=== PATIENT | male | born 1975 | race Caucasian/White ===

== ENCOUNTER 2016-09-30 09:58 | Emergency (ER) | payer BC ==
--- NOTE | 2016-09-30 10:13 | EDM.PDOC ---
ED HPI GENERAL MEDICAL PROBLEM - General Chief Complaint: Gastrointestinal Problem Stated Complaint: VOMITTING Time Seen by Provider: 09/30/16 10:13 Source of Information: Reports: Patient History Limitations: Reports: No Limitations - History of Present Illness INITIAL COMMENTS - FREE TEXT/NARRATIVE: HISTORY AND PHYSICAL: []41-year-old with history of pancreatitis presenting with vomiting per day and a half and elevated sugars History of Present Illness: [] This gentleman relates pain hospitalized 3 with his pancreatitis and abdominal pain in the past he is from [place] and has been hospitalized there as well as in [place] His blood sugars yesterday were reported at over 500 Today his sugars are over 350 he called his physician in [place] and was instructed to report to the emergency department here Patient complains of pain across his abdomen 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 Past medical history: As per history of present illness and as reviewed below otherwise noncontributory. Surgical history: As per history of present illness and as reviewed below otherwise noncontributory. Social history: No reported history of drug or alcohol abuse. Family history: As per history of present illness and as reviewed below otherwise noncontributory. Physical exam: Alert and oriented gentleman who answers questions appropriately skin is warm and dry he is speaking in full sentences with no shortness of breath and denies any chest pain, afebrile HEENT: Atraumatic, normocehpalic, pupils reactive, negative for conjunctival pallor or scleral icterus, mucous membranes dry, throat clear, neck supple, nontender, trachea midline. Lungs: Clear to auscultation, breath sounds equal bilaterally, chest non tender. Heart: S1S2, regular, negative for clicks, rubs, or JVD. Abdomen: Soft, slightly rounded, tender throughout. No rebound no guarding Negative for masses or hepatossplenmegaly. Negative for costovertebral tenderness. Pelvis: Stable nontender. Genitourinary: Deferred. Rectal: Deferred Extremities: Atraumatic, negative for cords or calf pain. No peripheral edema. Pedal pulses are intact Neurovascular unremarkable. Neuro: Awake, alert, oriented. Cranial nerves II through XII unremarkable. Cerebellum unremarkable. Motor and sensory unremarkable throughout. Exam nonfocal. Have discussed this case at some length with Discussed with the patient that he on CT scan has a nodule to the lung that needs to be reevaluated in 1 year. Have discussed with patient the results of his lab work and x-rays CT scan. Patient is requesting pain medication as he continues to have pain as 09/23. Lactic acid has returned to normal range after 2-1/2 L of fluid. Diagnostics: [CBC CMP amylase lipase CT abdomen blood cultures 2] chest x-ray [employer]: [Normal saline X 3 Dilaudid IV Zofran IV] Impression: [#1 abdominal pain #2 hyperglycemia #3 pancreatitis] Plan: [Discharged to home Zofran prescription for nausea Hydrocodone/APAP for pain] Definitive disposition and diagnosis as appropriate pending reevaluation and review of above. Onset: Sudden Duration: Day(s): Location: Reports: Abdomen abdomen Pain Score (Numeric/FACES): 9 - Related Data Allergies Allergy/AdvReac Type Severity Reaction Status Date / Time No Known Allergies Allergy Verified 09/30/16 10:24 Home Meds: Home Meds Insulin Detemir [Levemir] 1 unit SQ ASDIRECTED 09/30/16 [History] Insulin Lispro [Humalog Kwikpen U-100] ASDIRECTED 09/30/16 [History] sitaGLIPtin Phos/Metformin HCl [Janumet Xr 50-500 mg Tablet] 0 tab PO BID [History] ED ROS GENERAL - Review of Systems Review Of Systems: ROS reveals no pertinent complaints other than HPI. ED EXAM, GI/ABD - Physical Exam Exam: See Below (see dictation) EKG INTERPRETATION Rhythm: NSR Comparison: NA - No Prior EKG Course - Vital Signs Last Recorded V/S: Last Vital Signs Temp 36.6 C 09/30/16 14:07 Pulse 71 09/30/16 14:07 Resp 16 09/30/16 14:07 BP 124/77 09/30/16 14:07 Pulse Ox 99 09/30/16 14:07 - Orders/Labs/Meds Orders: Active Orders 24 hr Category Date Time Status Blood Glucose Check, Bedside [RC] ONETIME Care 09/30/16 10:20 Active EKG Documentation Completion [RC] STAT Care 09/30/16 10:20 Active CULTURE BLOOD [BC] Stat Lab 09/30/16 10:41 Received CULTURE BLOOD [BC] Stat Lab 09/30/16 10:56 Received CULTURE URINE [RM] Stat Lab 09/30/16 11:00 Received Sodium Chloride 0.9% [Normal Saline] 1,000 ml Med 09/30/16 14:36 Active IV STAT Sodium Chloride 0.9% [Saline Flush] Med 09/30/16 10:20 Active 10 ml FLUSH ASDIRECTED PRN Sodium Chloride 0.9% [Saline Flush] Med 09/30/16 10:20 Active 2.5 ml FLUSH ASDIRECTED PRN Blood Culture x2 Reflex Set [OM.PC] Stat Oth 09/30/16 10:21 Ordered Saline Lock Insert [OM.PC] Stat Oth 09/30/16 10:20 Ordered Medication Orders Sodium Chloride (Normal Saline) 1,000 mls @ 999 mls/hr IV STAT ONE Stop: 09/30/16 15:36 Last Admin: 09/30/16 14:41 Dose: 999 mls/hr Sodium Chloride (Saline Flush) 10 ml FLUSH ASDIRECTED PRN PRN Reason: Keep Vein Open Last Admin: 09/30/16 10:58 Dose: 10 ml Sodium Chloride (Saline Flush) 2.5 ml FLUSH ASDIRECTED PRN PRN Reason: Keep Vein Open Last Admin: 09/30/16 10:58 Dose: 2.5 ml Labs: Laboratory Tests 09/30/16 09/30/16 09/30/16 Range/Units 10:30 10:30 10:30 WBC 4.70 (4.0-11.0) K/uL RBC 4.93 (4.50-5.90) M/uL Hgb 16.2 (13.0-17.0) g/dL Hct 46.5 (38.0-50.0) % MCV 94.3 (80.0-98.0) fL MCH 32.9 H (27.0-32.0) pg MCHC 34.8 (31.0-37.0) g/dL RDW Std Deviation 44.6 (28.0-62.0) fl RDW Coeff of Kacey 13 (11.0-15.0) % Plt Count 122 L (150-400) K/uL MPV 10.90 (7.40-12.00) fL Neut % (Auto) 56.0 (48.0-80.0) % Lymph % (Auto) 33.2 (16.0-40.0) % Clarke % (Auto) 8.7 (0.0-15.0) % Eos % (Auto) 1.5 (0.0-7.0) % Baso % (Auto) 0.6 (0.0-1.5) % Neut # (Auto) 2.6 (1.4-5.7) K/uL Lymph # (Auto) 1.6 (0.6-2.4) K/uL Clarke # (Auto) 0.4 (0.0-0.8) K/uL Eos # (Auto) 0.1 (0.0-0.7) K/uL Baso # (Auto) 0.0 (0.0-0.1) K/uL D-Dimer, Quantitative 0.25 (0.0-0.52) mg/LFEU Lactate (0.20-2.00) mmol/L Sodium (136-146) mmol/L Potassium (3.5-5.1) mmol/L Chloride (98-110) mmol/L Carbon Dioxide (21-31) mmol/L BUN (6.0-23.0) mg/dL Creatinine (0.6-1.5) mg/dL Est Cr Clr Drug Dosing Estimated GFR (MDRD) ml/min Glucose (60-110) mg/dL POC Glucose (60-110) mg/dL Calcium (8.8-10.8) mg/dL Total Bilirubin (0.1-1.5) mg/dL AST (5-40) IU/L ALT (8-54) IU/L Alkaline Phosphatase (40-150) Ammonia (14-68) UG/DL Total Protein (6.0-8.0) g/dL Albumin (3.5-5.0) g/dL Globulin (2.0-3.5) g/dL Albumin/Globulin Ratio (1.3-2.8) Amylase 28 (10-90) U/L Lipase (7-80) U/L TSH 3rd Generation 0.75 (0.47-5.0) uIU/mL Urine Color Urine Appearance Urine pH (5.0-8.0) Ur Specific [place] (1.001-1.035) Urine Protein (NEGATIVE) mg/dL Urine Glucose (UA) (NEGATIVE) mg/dL Urine Ketones (NEGATIVE) mg/dL Urine Occult Blood (NEGATIVE) Urine Nitrite (NEGATIVE) Urine Bilirubin (NEGATIVE) Urine Urobilinogen (<2.0) EU/dL Ur Leukocyte Esterase (NEGATIVE) Urine RBC (0-2/HPF) Urine WBC (0-5/HPF) Ur Epithelial Cells (NONE-FEW) Calcium Oxalate Crystal (NEGATIVE) Urine Bacteria (NEGATIVE) Urine Mucus (NONE-MOD) Urine Opiates Screen (NEGATIVE) Ur Oxycodone Screen (NEGATIVE) Urine Methadone Screen (NEGATIVE) Ur Barbiturates Screen (NEGATIVE) Ur Phencyclidine Scrn (NEGATIVE) Ur Amphetamine Screen (NEGATIVE) U Methamphetamines Scrn (NEGATIVE) U Benzodiazepines Scrn (NEGATIVE) U Cocaine Metab Screen (NEGATIVE) U Marijuana (THC) Screen (NEGATIVE) 09/30/16 09/30/16 09/30/16 Range/Units 10:34 10:56 10:56 WBC (4.0-11.0) K/uL RBC (4.50-5.90) M/uL Hgb (13.0-17.0) g/dL Hct (38.0-50.0) % MCV (80.0-98.0) fL MCH (27.0-32.0) pg MCHC (31.0-37.0) g/dL RDW Std Deviation (28.0-62.0) fl RDW Coeff of Kacey (11.0-15.0) % Plt Count (150-400) K/uL MPV (7.40-12.00) fL Neut % (Auto) (48.0-80.0) % Lymph % (Auto) (16.0-40.0) % Clarke % (Auto) (0.0-15.0) % Eos % (Auto) (0.0-7.0) % Baso % (Auto) (0.0-1.5) % Neut # (Auto) (1.4-5.7) K/uL Lymph # (Auto) (0.6-2.4) K/uL Clarke # (Auto) (0.0-0.8) K/uL Eos # (Auto) (0.0-0.7) K/uL Baso # (Auto) (0.0-0.1) K/uL D-Dimer, Quantitative (0.0-0.52) mg/LFEU Lactate 5.1 H (0.20-2.00) mmol/L Sodium (136-146) mmol/L Potassium (3.5-5.1) mmol/L Chloride (98-110) mmol/L Carbon Dioxide (21-31) mmol/L BUN (6.0-23.0) mg/dL Creatinine (0.6-1.5) mg/dL Est Cr Clr Drug Dosing Estimated GFR (MDRD) ml/min Glucose (60-110) mg/dL POC Glucose 263 H (60-110) mg/dL Calcium (8.8-10.8) mg/dL Total Bilirubin (0.1-1.5) mg/dL AST (5-40) IU/L ALT (8-54) IU/L Alkaline Phosphatase (40-150) Ammonia 75 H (14-68) UG/DL Total Protein (6.0-8.0) g/dL Albumin (3.5-5.0) g/dL Globulin (2.0-3.5) g/dL Albumin/Globulin Ratio (1.3-2.8) Amylase (10-90) U/L Lipase (7-80) U/L TSH 3rd Generation (0.47-5.0) uIU/mL Urine Color Urine Appearance Urine pH (5.0-8.0) Ur Specific [place] (1.001-1.035) Urine Protein (NEGATIVE) mg/dL Urine Glucose (UA) (NEGATIVE) mg/dL Urine Ketones (NEGATIVE) mg/dL Urine Occult Blood (NEGATIVE) Urine Nitrite (NEGATIVE) Urine Bilirubin (NEGATIVE) Urine Urobilinogen (<2.0) EU/dL Ur Leukocyte Esterase (NEGATIVE) Urine RBC (0-2/HPF) Urine WBC (0-5/HPF) Ur Epithelial Cells (NONE-FEW) Calcium Oxalate Crystal (NEGATIVE) Urine Bacteria (NEGATIVE) Urine Mucus (NONE-MOD) Urine Opiates Screen (NEGATIVE) Ur Oxycodone Screen (NEGATIVE) Urine Methadone Screen (NEGATIVE) Ur Barbiturates Screen (NEGATIVE) Ur Phencyclidine Scrn (NEGATIVE) Ur Amphetamine Screen (NEGATIVE) U Methamphetamines Scrn (NEGATIVE) U Benzodiazepines Scrn (NEGATIVE) U Cocaine Metab Screen (NEGATIVE) U Marijuana (THC) Screen (NEGATIVE) 09/30/16 09/30/16 09/30/16 Range/Units 10:56 10:56 11:00 WBC (4.0-11.0) K/uL RBC (4.50-5.90) M/uL Hgb (13.0-17.0) g/dL Hct (38.0-50.0) % MCV (80.0-98.0) fL MCH (27.0-32.0) pg MCHC (31.0-37.0) g/dL RDW Std Deviation (28.0-62.0) fl RDW Coeff of Kacey (11.0-15.0) % Plt Count (150-400) K/uL MPV (7.40-12.00) fL Neut % (Auto) (48.0-80.0) % Lymph % (Auto) (16.0-40.0) % Clarke % (Auto) (0.0-15.0) % Eos % (Auto) (0.0-7.0) % Baso % (Auto) (0.0-1.5) % Neut # (Auto) (1.4-5.7) K/uL Lymph # (Auto) (0.6-2.4) K/uL Clarke # (Auto) (0.0-0.8) K/uL Eos # (Auto) (0.0-0.7) K/uL Baso # (Auto) (0.0-0.1) K/uL D-Dimer, Quantitative (0.0-0.52) mg/LFEU Lactate (0.20-2.00) mmol/L Sodium 137 (136-146) mmol/L Potassium 3.9 (3.5-5.1) mmol/L Chloride 105 (98-110) mmol/L Carbon Dioxide 19 L (21-31) mmol/L BUN 12 (6.0-23.0) mg/dL Creatinine 0.8 (0.6-1.5) mg/dL Est Cr Clr Drug Dosing TNP Estimated GFR (MDRD) > 60.0 ml/min Glucose 329 H (60-110) mg/dL POC Glucose (60-110) mg/dL Calcium 9.0 (8.8-10.8) mg/dL Total Bilirubin 0.8 (0.1-1.5) mg/dL AST 50 H (5-40) IU/L ALT 70 H (8-54) IU/L Alkaline Phosphatase 80 (40-150) Ammonia (14-68) UG/DL Total Protein 6.7 (6.0-8.0) g/dL Albumin 3.8 (3.5-5.0) g/dL Globulin 2.9 (2.0-3.5) g/dL Albumin/Globulin Ratio 1.3 (1.3-2.8) Amylase (10-90) U/L Lipase 39 (7-80) U/L TSH 3rd Generation (0.47-5.0) uIU/mL Urine Color YELLOW Urine Appearance CLEAR Urine pH 5.5 (5.0-8.0) Ur Specific [place] 1.010 (1.001-1.035) Urine Protein NEGATIVE (NEGATIVE) mg/dL Urine Glucose (UA) >=1000 (NEGATIVE) mg/dL Urine Ketones NEGATIVE (NEGATIVE) mg/dL Urine Occult Blood NEGATIVE (NEGATIVE) Urine Nitrite NEGATIVE (NEGATIVE) Urine Bilirubin NEGATIVE (NEGATIVE) Urine Urobilinogen 0.2 (<2.0) EU/dL Ur Leukocyte Esterase NEGATIVE (NEGATIVE) Urine RBC 0-1 (0-2/HPF) Urine WBC 0-1 (0-5/HPF) Ur Epithelial Cells OCCASIONAL (NONE-FEW) Calcium Oxalate Crystal FEW (NEGATIVE) Urine Bacteria RARE (NEGATIVE) Urine Mucus LIGHT (NONE-MOD) Urine Opiates Screen (NEGATIVE) Ur Oxycodone Screen (NEGATIVE) Urine Methadone Screen (NEGATIVE) Ur Barbiturates Screen (NEGATIVE) Ur Phencyclidine Scrn (NEGATIVE) Ur Amphetamine Screen (NEGATIVE) U Methamphetamines Scrn (NEGATIVE) U Benzodiazepines Scrn (NEGATIVE) U Cocaine Metab Screen (NEGATIVE) U Marijuana (THC) Screen (NEGATIVE) 09/30/16 09/30/16 09/30/16 Range/Units 11:00 12:50 14:37 WBC (4.0-11.0) K/uL RBC (4.50-5.90) M/uL Hgb (13.0-17.0) g/dL Hct (38.0-50.0) % MCV (80.0-98.0) fL MCH (27.0-32.0) pg MCHC (31.0-37.0) g/dL RDW Std Deviation (28.0-62.0) fl RDW Coeff of Kacey (11.0-15.0) % Plt Count (150-400) K/uL MPV (7.40-12.00) fL Neut % (Auto) (48.0-80.0) % Lymph % (Auto) (16.0-40.0) % Clarke % (Auto) (0.0-15.0) % Eos % (Auto) (0.0-7.0) % Baso % (Auto) (0.0-1.5) % Neut # (Auto) (1.4-5.7) K/uL Lymph # (Auto) (0.6-2.4) K/uL Clarke # (Auto) (0.0-0.8) K/uL Eos # (Auto) (0.0-0.7) K/uL Baso # (Auto) (0.0-0.1) K/uL D-Dimer, Quantitative (0.0-0.52) mg/LFEU Lactate 1.1 (0.20-2.00) mmol/L Sodium (136-146) mmol/L Potassium (3.5-5.1) mmol/L Chloride (98-110) mmol/L Carbon Dioxide (21-31) mmol/L BUN (6.0-23.0) mg/dL Creatinine (0.6-1.5) mg/dL Est Cr Clr Drug Dosing Estimated GFR (MDRD) ml/min Glucose (60-110) mg/dL POC Glucose 156 H (60-110) mg/dL Calcium (8.8-10.8) mg/dL Total Bilirubin (0.1-1.5) mg/dL AST (5-40) IU/L ALT (8-54) IU/L Alkaline Phosphatase (40-150) Ammonia (14-68) UG/DL Total Protein (6.0-8.0) g/dL Albumin (3.5-5.0) g/dL Globulin (2.0-3.5) g/dL Albumin/Globulin Ratio (1.3-2.8) Amylase (10-90) U/L Lipase (7-80) U/L TSH 3rd Generation (0.47-5.0) uIU/mL Urine Color Urine Appearance Urine pH (5.0-8.0) Ur Specific [place] (1.001-1.035) Urine Protein (NEGATIVE) mg/dL Urine Glucose (UA) (NEGATIVE) mg/dL Urine Ketones (NEGATIVE) mg/dL Urine Occult Blood (NEGATIVE) Urine Nitrite (NEGATIVE) Urine Bilirubin (NEGATIVE) Urine Urobilinogen (<2.0) EU/dL Ur Leukocyte Esterase (NEGATIVE) Urine RBC (0-2/HPF) Urine WBC (0-5/HPF) Ur Epithelial Cells (NONE-FEW) Calcium Oxalate Crystal (NEGATIVE) Urine Bacteria (NEGATIVE) Urine Mucus (NONE-MOD) Urine Opiates Screen NEGATIVE (NEGATIVE) Ur Oxycodone Screen NEGATIVE (NEGATIVE) Urine Methadone Screen NEGATIVE (NEGATIVE) Ur Barbiturates Screen NEGATIVE (NEGATIVE) Ur Phencyclidine Scrn NEGATIVE (NEGATIVE) Ur Amphetamine Screen NEGATIVE (NEGATIVE) U Methamphetamines Scrn NEGATIVE (NEGATIVE) U Benzodiazepines Scrn POSITIVE (NEGATIVE) U Cocaine Metab Screen NEGATIVE (NEGATIVE) U Marijuana (THC) Screen NEGATIVE (NEGATIVE) Meds: Medications Generic Name Dose Route Start Last Admin Trade Name Freq PRN Reason Stop Dose Admin Sodium Chloride 1,000 mls @ 999 mls/hr 09/30/16 14:36 09/30/16 14:41 Normal Saline IV 09/30/16 15:36 999 mls/hr STAT ONE Administration Sodium Chloride 10 ml 09/30/16 10:20 09/30/16 10:58 Saline Flush FLUSH 10 ml ASDIRECTED PRN Administration Keep Vein Open Sodium Chloride 2.5 ml 09/30/16 10:20 09/30/16 10:58 Saline Flush FLUSH 2.5 ml ASDIRECTED PRN Administration Keep Vein Open Discontinued Medications Generic Name Dose Route Start Last Admin Trade Name Freq PRN Reason Stop Dose Admin Hydromorphone HCl 1 mg 09/30/16 12:33 09/30/16 12:46 Dilaudid IM 09/30/16 12:34 1 mg ONETIME ONE Administration Hydromorphone HCl 1 mg 09/30/16 12:45 09/30/16 12:47 Dilaudid IVPUSH 09/30/16 12:46 Not Given ONETIME ONE Hydromorphone HCl 1 mg 09/30/16 14:33 09/30/16 14:43 Dilaudid IVPUSH 09/30/16 14:34 1 mg ONETIME ONE Administration Sodium Chloride 1,000 mls @ 999 mls/hr 09/30/16 12:08 09/30/16 12:23 Normal Saline IV 09/30/16 13:08 999 mls/hr STAT ONE Administration Insulin Human Regular 3 unit 09/30/16 10:36 09/30/16 10:58 Novolin R IVPUSH 09/30/16 10:37 3 units ONETIME ONE Administration Protocol Iopamidol 100 ml 09/30/16 13:46 09/30/16 13:49 Isovue Multipack-370 (76%) IVPUSH 09/30/16 13:47 100 ml ONETIME STA Administration Ondansetron HCl 4 mg 09/30/16 14:33 09/30/16 14:41 Zofran IVPUSH 09/30/16 14:34 4 mg ONETIME ONE Administration Departure - Departure Time of Disposition: 15:07 Disposition: Home, Self-Care 01 Condition: Good Clinical Impression: Abdominal pain, Dehydration - Discharge Information Instructions: Dehydration, Adult, [id number] Referrals: PCP,Meliza [Primary Care Provider] - Rocky Goddard DO [Physician] - Forms: ED Department Discharge Additional Instructions: The following information is given to patients seen in the emergency department who are being discharged to home. This information is to outline your options for follow-up care. We provide all patients seen in our emergency department with a follow-up referral. The need for follow-up, as well as the timing and circumstances, are variable depending upon the specifics of your emergency department visit. If you don't have a primary care physician on staff, we will provide you with a referral. We always advise you to contact your personal physician following an emergency department visit to inform them of the circumstance of the visit and for follow-up with them and/or the need for any referrals to a consulting specialist. The emergency department will also refer you to a specialist when appropriate. This referral assures that you have the opportunity for followup care with a specialist. All of these measure are taken in an effort to provide you with optimal care, which includes your followup. Under all circumstances we always encourage you to contact your private physician who remains a resource for coordinating your care. When calling for followup care, please make the office aware that this follow-up is from your recent emergency room visit. If for any reason you are refused follow-up, please contact the [facility] emergency department at and asked to speak to the emergency department charge nurse. You were diagnosed with some dehydration continue to drink fluids every 20 minutes to Keep hydrated Prescription is written for Zofran 4 mg ODT for nausea one every 8 hours as needed #10 no refill Hydrocodone/APAP 5/325 one 3 times a day when necessary pain #6 tablets - My Orders Last 24 Hours: My Active Orders 09/30/16 10:20 Blood Glucose Check, Bedside [RC] ONETIME EKG Documentation Completion [RC] STAT Sodium Chloride 0.9% [Saline Flush] 10 ml FLUSH ASDIRECTED PRN Sodium Chloride 0.9% [Saline Flush] 2.5 ml FLUSH ASDIRECTED PRN Saline Lock Insert [OM.PC] Stat 09/30/16 10:21 Blood Culture x2 Reflex Set [OM.PC] Stat 09/30/16 10:41 CULTURE BLOOD [BC] Stat 09/30/16 10:56 CULTURE BLOOD [BC] Stat 09/30/16 11:00 CULTURE URINE [RM] Stat 09/30/16 14:36 Sodium Chloride 0.9% [Normal Saline] 1,000 ml IV STAT - Assessment/Plan Last 24 Hours: My Active Orders 09/30/16 10:20 Blood Glucose Check, Bedside [RC] ONETIME EKG Documentation Completion [RC] STAT Sodium Chloride 0.9% [Saline Flush] 10 ml FLUSH ASDIRECTED PRN Sodium Chloride 0.9% [Saline Flush] 2.5 ml FLUSH ASDIRECTED PRN Saline Lock Insert [OM.PC] Stat 09/30/16 10:21 Blood Culture x2 Reflex Set [OM.PC] Stat 09/30/16 10:41 CULTURE BLOOD [BC] Stat 09/30/16 10:56 CULTURE BLOOD [BC] Stat 09/30/16 11:00 CULTURE URINE [RM] Stat 09/30/16 14:36 Sodium Chloride 0.9% [Normal Saline] 1,000 ml IV STAT
[2016-09-30] MEDS ORDERED: Sodium Chloride 0.9% 10 ML Syringe FLUSH PRN (10:20)
[2016-09-30] MEDS ORDERED: Sodium Chloride 0.9% 2.5 ML Syringe FLUSH PRN (10:20)
[2016-09-30] MEDS ORDERED: Insulin Regular, Human 100 Units/ML 10 ML Vial IVPUSH ONE (10:36)
--- NOTE | 2016-09-30 11:56 | CR ---
EXAMINATION: Two-view chest (PA and Lateral views). HISTORY: Shortness of breath. FINDINGS: The trachea is midline. The cardiomediastinal silhouette is within normal limits. No pulmonary infil trates, effusions or pneumothorax. Likely old granulomatous disease. Osseous structures appear unremarkable. IMPRESSION: No acute cardiopulmonary process.
--- NOTE | 2016-09-30 11:59 | CR ---
EXAMINATION: Abdomen HISTORY: Pain COMPARISON: None TECHNIQUE: AP and upright views FINDINGS: There is a nonobstructive bowel gas pattern with a small amount of stool throughout the co edilma and rectum. No abnormal calcifications project over the kidneys. No organomegaly. Pelvic phlebol iths are noted. The visualized osseous structures appear normal. IMPRESSION: No acute abdominal findings identified.
[2016-09-30] MEDS ORDERED: Sodium Chloride 0.9% 1,000 ML IV ONE ×2 (12:08→14:36)
[2016-09-30 12:32] LABS: CHLORIDE,CL 105 mmol/L (98-110); SODIUM,NA 137 mmol/L (136-146)
[2016-09-30] MEDS ORDERED: HYDROmorphone 1 MG/ML Syringe IM ONE (12:33)
[2016-09-30] MEDS ORDERED: HYDROmorphone 2 MG/ML Syringe IVPUSH ONE (12:45)
[2016-09-30] MEDS ORDERED: Iopamidol 755 MG/ML 500 ML Multipack Bottle IVPUSH STA (13:46)
--- NOTE | 2016-09-30 14:25 | CT ---
CT of the abdomen and pelvis with contrast. HISTORY: Pain TECHNIQUE: Axial CT images were obtained of the abdomen and pelvis following administration of 100 m L of Isovue-370 left wrist without complication. Coronal and sagittal reconstructions obtained. FINDINGS: The bases are clear, no pleural effusion. There is a 6 mm nodule within the left upper lobe just ant erior to the major fissure laterally on the first image. There is a tiny cyst within the right hepatic lobe. The gallbladder appears normal. The spleen, adre nal glands, and pancreas appear normal. There is no bulky retroperitoneal lymphadenopathy or abdomin al ascites. The large and small bowel are normal in caliber without evidence of obstruction. No focal pericoloni c inflammation or stranding. The appendix is normal. No pelvic lymphadenopathy. The urinary bladder is normal. No suspicious osseous abnormalities identified. IMPRESSION: 1. No acute findings demonstrated within the abdomen or pelvis. 2. There is a 5 to 6 mm nodule within the left upper lobe. If the patient has known risk factors fol low-up in 12 months.
[2016-09-30] MEDS ORDERED: HYDROmorphone 1 MG/ML Syringe IVPUSH ONE (14:33)
[2016-09-30] MEDS ORDERED: Ondansetron 4 MG/2 ML SDV IVPUSH ONE (14:33)
[2016-09-30 16:13] VITALS: BP 130/83
== END 2016-09-30 15:50 | disposition home or self-care (01) ==
LOC: MW.ED 09:58 → EDSEX 09:58 → MW.ED 15:50
DX: E86.0 Dehydration (principal); R10.9 Unspecified abdominal pain; R73.9 Hyperglycemia, unspecified; K85.90 Acute pancreatitis without necrosis or infection, unspecified; Z98.890 Other specified postprocedural states
CPT/HCPCS: 36415; 71020; 74000; 74177; 80053; 80305; 81001; 82140; 82150; 82962; 83605; 83690; 84443; 85025; 85379; 87040; 87086; 93005; 96361; 96374; 96375; 96376; 99284; J1170; J2405; J7040; Q9967; J1815-GY

== ENCOUNTER 2016-10-19 12:40 | Emergency (ER) | payer BC ==
[2016-10-19] MEDS ORDERED: Acetaminophen/HYDROcodone 325-7.5 MG Tab PO ONE (13:13)
[2016-10-19] MEDS ORDERED: Ketorolac 60 MG/2 ML SDV IM ONE (13:13)
--- NOTE | 2016-10-19 13:18 | EDM.PDOC ---
ED HPI GENERAL MEDICAL PROBLEM - General Chief Complaint: Back Pain or Injury Stated Complaint: BACK PAIN Time Seen by Provider: 10/19/16 13:03 - History of Present Illness INITIAL COMMENTS - FREE TEXT/NARRATIVE: HISTORY AND PHYSICAL: History of present illness: The patient is a 41-year-old male who presents with complaints of right lower back pain that he sustained after falling this morning at about 4-4:30 AM. The patient says that he had a normal day yesterday and woke up at his usual time and went to let his dogs out of his trailer and when he put his foot down just outside of the door he slipped and fell backwards landing on his right lower back. He did not hit his head pass out or black out but feels sore and achy on the entire right side. He says the pain originates in his localized more at the right posterior hip and lower back area. He has no flank pain or rib pain and no shortness of breath or abdominal complaints. He has no extremity pain or complaints. He has no neurosensory changes or weakness in his arms or legs. Patient did not take anything for the pain prior to coming here. Patient has a history of a laminectomy in his lumbar spine in the past. Review of systems: As per history of present illness and below otherwise all systems reviewed and negative. Past medical history: As per history of present illness and as reviewed below otherwise noncontributory. Surgical history: As per history of present illness and as reviewed below otherwise noncontributory. Social history: No reported history of drug or alcohol abuse. Family history: As per history of present illness and as reviewed below otherwise noncontributory. Physical exam: Gen.: Well-developed mildly overweight male who is nontoxic and moves easily in the ED albeit slightly slowed due to discomfort. Vital signs been reviewed by me. HEENT: Atraumatic, normocephalic, pupils reactive, negative for conjunctival pallor or scleral icterus, mucous membranes moist, throat clear, neck supple, nontender, trachea midline. are no midline step-offs in his defects of the cervical spine Lungs: Clear to auscultation, breath sounds equal bilaterally, chest nontender. there is no posterior rib tenderness crepitus or soft tissue abnormalities appreciated Heart: S1S2, regular rate and rhythm no overt murmurs Abdomen: Soft, nondistended, nontender. NABS Negative for costovertebral tenderness. Pelvis: Stable nontender. no gross lateral hip tenderness especially of right Genitourinary: Deferred. Rectal: Deferred. Extremities: Atraumatic, full range of motion without defects or deficits, negative for cords or calf pain. Neurovascular unremarkable. Neuro: Awake, alert, oriented. Cranial nerves II through XII unremarkable. Cerebellum unremarkable. Motor and sensory unremarkable throughout. Exam nonfocal. patellar reflexes are +2/4 bilaterally and patient has intact dorsi and plantar flexion 5/5 in the great toe Back: There are no midline step-offs tenderness defects of the thoracic or lumbar spine and there is an old well-healed lumbar spine incision seen. There is tenderness just to the right of the midline extending into the posterior iliac crest of the pelvis without any soft tissue changes such as ecchymosis erythema or abrasions. There are no palpable bony deformities in this region. There are no posterior rib tenderness or abnormalities and no flank tenderness or CVA tenderness. Diagnostics: X-ray of lumbar spine and right hip with pelvis Therapeutics: Toradol and [place] Impression: Fall with right lumbar back contusion/posterior pelvis contusion Definitive disposition and diagnosis as appropriate pending reevaluation and review of above. - Related Data Allergies Allergy/AdvReac Type Severity Reaction Status Date / Time No Known Allergies Allergy Verified 09/30/16 10:24 Home Meds: Home Meds Insulin Detemir [Levemir] 1 unit SQ ASDIRECTED 09/30/16 [History] Insulin Lispro [Humalog Kwikpen U-100] ASDIRECTED 09/30/16 [History] sitaGLIPtin Phos/Metformin HCl [Janumet Xr 50-500 mg Tablet] 0 tab PO BID [History] Citalopram [Celexa] 20 mg PO DAILY 10/19/16 [History] Simvastatin [Zocor] 20 mg PO DAILY 10/19/16 [History] Past Medical History - Past Health History Medical/Surgical History: Denies Medical/Surgical History HEENT History: Reports: Impaired Vision Other HEENT History: wears glasses Endocrine/Metabolic History: Reports: Diabetes, Type II - Past Surgical History Musculoskeletal Surgical History: Reports: Shoulder Surgery, Other (See Below) Other Musculoskeletal Surgeries/Procedures:: back sx and knee sx. Social & Family History - Family History Family Medical History: Noncontributory - Tobacco Use Smoking Status *Q: Never Smoker Second Hand Smoke Exposure: No - Recreational Drug Use Recreational Drug Use: No ED ROS GENERAL - Review of Systems Review Of Systems: ROS reveals no pertinent complaints other than HPI. ED EXAM, GENERAL - Physical Exam Exam: See Below (See dictation) Course - Vital Signs Last Recorded V/S: Last Vital Signs Temp 36.3 C 10/19/16 12:53 Pulse 100 10/19/16 12:53 Resp 18 10/19/16 12:53 BP 128/80 10/19/16 12:53 Pulse Ox 97 10/19/16 12:53 - Orders/Labs/Meds Meds: Medications Discontinued Medications Generic Name Dose Route Start Last Admin Trade Name Freq PRN Reason Stop Dose Admin Hydrocodone Bitart/Acetaminophen 1 tab 10/19/16 13:13 10/19/16 13:23 [place] 325-7.5 Mg PO 10/19/16 13:14 1 tab ONETIME ONE Administration Ketorolac Tromethamine 60 mg 10/19/16 13:13 10/19/16 13:20 Toradol IM 10/19/16 13:14 60 mg ONETIME ONE Administration Departure - Departure Time of Disposition: 14:20 Disposition: Home, Self-Care 01 Condition: Good Clinical Impression: Back contusion Qualifiers: Encounter type: initial encounter Laterality: right Qualified Code(s): S20.221A - Contusion of right back wall of thorax, initial encounter Fall Qualifiers: Encounter type: initial encounter Qualified Code(s): W19.XXXA - Unspecified fall, initial encounter - Discharge Information Referrals: PCP,None [Primary Care Provider] - Forms: ED Department Discharge Additional Instructions: The following information is given to patients seen in the emergency department who are being discharged to home. This information is to outline your options for follow-up care. We provide all patients seen in our emergency department with a follow-up referral. The need for follow-up, as well as the timing and circumstances, are variable depending upon the specifics of your emergency department visit. If you don't have a primary care physician on staff, we will provide you with a referral. We always advise you to contact your personal physician following an emergency department visit to inform them of the circumstance of the visit and for follow-up with them and/or the need for any referrals to a consulting specialist. The emergency department will also refer you to a specialist when appropriate. This referral assures that you have the opportunity for followup care with a specialist. All of these measure are taken in an effort to provide you with optimal care, which includes your followup. Under all circumstances we always encourage you to contact your private physician who remains a resource for coordinating your care. When calling for followup care, please make the office aware that this follow-up is from your recent emergency room visit. If for any reason you are refused follow-up, please contact the [facility] emergency department at and ask to speak to the emergency department charge nurse. [facility] Primary care- Internal Medicine and Family [facility] [address] Please use ice to areas of discomfort for the next 24 hours or more if necessary. Please rest and do all activities slowly but please try to move around and not only lay in bed as you will get stiffer. Use all medications as needed and as prescribed. Return to ER as needed and as discussed. Please call and follow-up with one of our providers in the next few days for reevaluation and further care or your provider.
--- NOTE | 2016-10-19 13:51 | CR ---
EXAMINATION: Lumbar spine, right hip and pelvis HISTORY: Pain COMPARISON: None TECHNIQUE: AP and lateral views of the lumbar spine, AP pelvis, and 2 views of the right hip. FINDINGS: The lumbar spinal alignment is normal. The vertebral body heights appear maintained. Bone mineralizat ion is normal. Minimal osteophyte formation noted at L5-S1. SI joints are symmetric. Iliopectineal lines are intact. The hip joint spaces are preserved. IMPRESSION: No acute osseous abnormality identified.
[2016-10-19 15:08] VITALS: BP 135/88
== END 2016-10-19 14:58 | disposition home or self-care (01) ==
LOC: MW.ED 12:40
DX: S20.221A Contusion of right back wall of thorax, initial encounter (principal); E11.9 Type 2 diabetes mellitus without complications; Z98.890 Other specified postprocedural states; Z79.4 Long term (current) use of insulin; Z79.899 Other long term (current) drug therapy; W01.0XXA Fall on same level from slipping, tripping and stumbling without subsequent striking against object, initial encounter
CPT/HCPCS: 72100; 73502; 96372; 99283; A9270; J1885; 99282